=== PATIENT | male | born 1950 | race Caucasian/White ===

== ENCOUNTER 2021-01-12 18:53 | Inpatient (IN) | payer OTHER ==
[~2021-01-12] VITALS: Ht 175.3 cm; Wt 61.3 kg
[2021-01-12 19:10] VITALS: BP 94/57
[2021-01-12] MEDS ORDERED: ATIVAN1 MG PO (19:24)
[2021-01-12] MEDS ORDERED: VALPROIC ACI50 MG/ML PO (19:25)
[2021-01-12] MEDS ORDERED: GEODON20 M1 IM (19:26)
[2021-01-12 19:40] LABS: BASO % 0.1 % (0.0-1.0); EOS # 0.1 10*3/uL (0.0-0.4); EOS % 0.9 % (1.0-4.0); HEMATOCRIT 38.2 % (42.0-52.0); LYMPH % 12.4 % (27.0-41.0); MEAN CELL VOLUME 96.7 fl (80.0-94.0); MEAN CORPUSCULAR HGB 31.1 pg (27.0-31.0); MEAN CORPUSCULAR HGB CONC 32.2 g/dl (33.0-37.0); MEAN PLATELET VOLUME 10.5 fl (9.6-12.3); MONO # 0.9 10*3/uL (0.1-1.0); MONO % 10.8 % (3.0-9.0); NEUT # 5.9 10*3/uL (2.3-7.9); NEUT % 75.5 % (47.0-73.0); PLATELET COUNT AUTOMATED 334 10*3/uL (130-400); RED BLOOD COUNT 3.95 10*6/uL (4.50-5.90); RED CELL DISTRI WIDTH 13.8 % (0-14.5); WHITE BLOOD COUNT 7.9 10*3/uL (4.8-10.8)
[2021-01-12 19:56] LABS: ALBUMIN 2.7 gm/dl (3.1-4.5); ALKALINE PHOSPHATASE 96 U/L (45-117); BUN 16 mg/dl (7-24); CHLORIDE 106 mmol/L (98-107); CREATININE 0.89 mg/dL (0.70-1.30); POTASSIUM 3.6 mmol/L (3.5-5.1); SGOT/AST 16 IU/L (3-35); SGPT/ALT 21 U/L (12-78); SODIUM 139 mmol/L (136-145)
[2021-01-12 20:05] LABS: ACETAMINOPHEN (TYLENOL) < 5.0 ug/ml (10-30); ETHYL ALCOHOL < 3.0 mg/dl (<3)
[2021-01-12 20:15] LABS: BILIRUBIN Negative (Negative); BLOOD Negative (Negative); CLARITY Clear (Clear); COLOR Yellow (Yellow); GLUCOSE Negative (Negative); KETONE Trace (Negative); LEUKO ESTERASE Negative (Negative); NITRITE Negative (Negative)
[2021-01-12 20:20] LABS: URINE AMPHETAMINES < 1000 (1000ng/ml); URINE BARBITURATES < 200 (200ng/ml); URINE BENZODIAZEPINES < 200 (200ng/ml); URINE CANNABINOIDS (THC) < 50 (50ng/ml); URINE COCAINE < 300 (300ng/ml); URINE METHADONE < 300 (300ng/ml); URINE OPIATES < 300 (300ng/ml)
[2021-01-12 20:23] LABS: URINE PHENCYCLIDINE < 25 (25ng/ml)
[2021-01-12 20:26] LABS: EPITHELIAL CELLS 0-2; RBC 0-2 rbc/hpf (0-2); WBC 0-2 wbc/hpf (0-5)
[2021-01-12 23:48] VITALS: BP 111/63
[2021-01-12] MEDS ORDERED: HEALTHYLAX17 GM GT (23:59)
[2021-01-13 07:31] VITALS: BP 108/61
[2021-01-13 08:43] LABS: VITAMIN D, 25-HYDROXY 45.6 ng/mL (30-100)
[2021-01-13 12:13] VITALS: BP 108/61
[2021-01-13 19:52] VITALS: BP 106/62
[2021-01-14 07:45] VITALS: BP 111/65
[2021-01-14 08:07] LABS: HEP B CORE AB, IGM Negative (Negative); HEPATITIS B SURFACE AG Negative (Negative); HEPATITIS C VIRUS ANTIBODY <0.1 s/co (0.0-0.9)
[2021-01-14 08:35] VITALS: BP 86/58
[2021-01-14 12:30] VITALS: BP 92/46
[2021-01-14 20:00] VITALS: BP 101/58
[2021-01-15 07:47] VITALS: BP 98/57
[2021-01-15 20:00] VITALS: BP 133/69; BP 97/61
[2021-01-16 08:00] VITALS: BP 90/50
[2021-01-16 19:59] VITALS: BP 103/56
[2021-01-17 07:30] VITALS: BP 98/55
[2021-01-17 19:52] VITALS: BP 103/67
[2021-01-18 07:21] VITALS: BP 105/59
[2021-01-18 19:41] VITALS: BP 119/68
[2021-01-19 07:49] VITALS: BP 95/60
[2021-01-19 09:20] VITALS: BP 112/58
[2021-01-19 19:56] VITALS: BP 103/65
[2021-01-20] MEDS ORDERED: RIVASTIGMINE1 EAC2 T (06:57)
[2021-01-20] MEDS ORDERED: MEMANTINE HCL10 MG PO (06:57)
[2021-01-20] MEDS ORDERED: DEPAKENE S250 MG/5 M PO (06:57)
[2021-01-20 07:44] VITALS: BP 108/67
== END 2021-01-20 13:11 | DRG 883 ==
LOC: ED 18:53 → 3N 22:49
PROVIDERS: Emergency Medicine; Internal Medicine; ADMIT Psychiatry & Neurology Psychiatry; ATTEND Psychiatry & Neurology Psychiatry
DX: F63.81 Intermittent explosive disorder (principal); E43 Unspecified severe protein-calorie malnutrition; L03.114 Cellulitis of left upper limb; F03.91 Unspecified dementia, unspecified severity, with behavioral disturbance; D53.9 Nutritional anemia, unspecified; R73.9 Hyperglycemia, unspecified; R13.10 Dysphagia, unspecified; F17.210 Nicotine dependence, cigarettes, uncomplicated; R29.6 Repeated falls; B35.1 Tinea unguium